=== PATIENT | male | born 1965 | race Caucasian/White ===

== ENCOUNTER 2021-10-02 09:26 | Outpatient (CLI) | payer BC, SELFPAY ==
[2021-10-02 09:50] LABS: Basophils Percent Auto 0.4 % (0.2-1.2); Eosinophils Absolute Auto 0.2 K/mm3 (0-0.3); Eosinophils Percent Auto 2.6 % (0-4.4); Hematocrit 42.1 % (42.0-52.0); Hemoglobin 14.7 g/dL (14.0-18.0); Immature Granulocyte Absolute 0.02 K/mm3 (0.00-0.031); Immature Granulocyte Percent A 0.3 % (0-0.5); Lymphocytes Absolute Auto 2.56 K/mm3 (0.9-3.2); Lymphocytes Percent Auto 32.7 % (18.3-44.2); Mean Corpuscular HGB Conc 34.9 g/dl (32-36); Mean Corpuscular Hemoglobin 31.5 pg (26-34); Mean Corpuscular Volume 90.3 fl (80-100); Mean Platelet Volume 10.8 fl (7.4-10.4); Monocytes Absolute Auto 0.5 K/mm3 (0.1-0.6); Monocytes Percent Auto 6.1 % (2.6-8.5); Neutrophils Absolute Auto 4.5 K/mm3 (1.3-6.7); Neutrophils Percent Auto 57.9 % (45.5-73.1); Platelet Count Result 227 k/mm3 (150-375); Red Blood Count 4.66 M/mm3 (4.6-6.20); Red Cell Distribution Width 12.3 % (11.5-14.5); White Blood Count 7.8 K/mm3 (4.5-10.0)
[2021-10-02 09:59] LABS: Alanine Aminotransferase 39 U/L (4-50); Albumin Level 4.2 g/dL (3.5-5.1); Alkaline Phosphatase 56 U/L (38-126); Anion Gap 4 mmol/L (8-16); Aspartate Amino Transferase 39 U/L (17-59); Bilirubin,Total 0.3 mg/dL (0.2-1.3); Blood Urea Nitrogen 10 mg/dL (9-20); Calcium 8.8 mg/dL (8.4-10.2); Carbon Dioxide 29 mmol/L (22-30); Chloride 106 mmol/L (98-107); Cholesterol 234 mg/dL (0-200); Estimated Glomerular Filt Rate > 60; Glucose 99 mg/dL (65-110); HDL Direct 34 mg/dL; Potassium 4.3 mmol/L (3.4-5.0); Sodium 139 mmol/L (137-145); Triglycerides 331 mg/dL (<150)
[2021-10-02 10:07] LABS: Hemoglobin A1C 5.6 % (<5.7)
[2021-10-02 10:09] LABS: LDL Cholesterol Direct 132 mg/dL
[2021-10-02 10:29] LABS: Prostate Specific Antigen 1.9 ng/mL (< OR = 4.0)
[2021-10-02 10:49] LABS: Vitamin D 25 Hydroxy 17.5 ng/mL
== END 2021-10-02 09:27 | disposition home or self-care (01) ==
LOC: ANHLAB 09:32
PROVIDERS: PCP Family Medicine; Visit Provider Nurse Practitioner Family
DX: Z13.0 Encounter for screening for diseases of the blood and blood-forming organs and certain disorders involving the immune mechanism (principal); Z13.1 Encounter for screening for diabetes mellitus; Z13.220 Encounter for screening for lipoid disorders; Z12.5 Encounter for screening for malignant neoplasm of prostate; Z13.29 Encounter for screening for other suspected endocrine disorder
CPT/HCPCS: 36415; 80053; 80061; 82306; 82607; 83036; 84153; 84443; 85025; G0103

== ENCOUNTER 2021-10-04 08:57 | Outpatient (CLI) | payer BC, SELFPAY ==
--- NOTE | ~2021-10-04 | XR_ITS ---
EXAMINATION: XR shoulder RT min 2V DATE: 10/04/2021 09:19 INDICATION: Right shoulder pain. TECHNIQUE: 4 views of right shoulder were obtained. COMPARISON: None. FINDINGS: Bone alignment is normal. No fracture. Glenohumeral joint is normal. There is mild acromioc lavicular joint osteoarthritis. IMPRESSION: 1. Mild acromioclavicular joint osteoarthritis. Reviewed, dictated and finalized at location A.
--- NOTE | ~2021-10-04 | XR_ITS ---
EXAMINATION: XR shoulder LT min 2V DATE: 10/04/2021 09:20 INDICATION: Left shoulder pain. TECHNIQUE: 4 views of left shoulder were obtained. COMPARISON: None. FINDINGS: Bone alignment is normal. No fracture. There is mild osteoarthritis of glenohumeral joint a nd moderate osteoarthritis of acromioclavicular joint. IMPRESSION: 1. Polyarticular osteoarthritis. Reviewed, dictated and finalized at location A.
== END 2021-10-04 08:58 | disposition home or self-care (01) ==
LOC: ANHIMG 08:59
PROVIDERS: PCP Family Medicine; Visit Provider Nurse Practitioner Family
DX: M19.012 Primary osteoarthritis, left shoulder (principal); M19.011 Primary osteoarthritis, right shoulder
CPT/HCPCS: 73030

== ENCOUNTER 2022-02-05 11:08 | Outpatient (CLI) | payer BC, SELFPAY ==
[2022-02-05 12:15] LABS: Cholesterol 137 mg/dL (0-200); HDL Direct 41 mg/dL; Triglycerides 219 mg/dL (<150)
[2022-02-05 12:26] LABS: LDL Cholesterol Direct 66 mg/dL
== END 2022-02-05 11:09 | disposition home or self-care (01) ==
PROVIDERS: PCP Family Medicine; Visit Provider Nurse Practitioner Family
DX: E78.5 Hyperlipidemia, unspecified (principal)
CPT/HCPCS: 36415; 80061

== ENCOUNTER 2022-08-15 07:23 | Outpatient (CLI) | payer BC, SELFPAY ==
--- NOTE | ~2022-08-15 | US_ITS ---
US right upper quadrant DATE: 08/15/2022 07:55 INDICATION: Right upper quadrant abdominal pain TECHNIQUE: Real-time imaging and Doppler analysis COMPARISON: None FINDINGS: No gallstones or gallbladder wall thickening. Common bile duct measures 4 mm, negative sono graphic Patel's sign. There is a focal hypoechoic area liver adjacent to the gallbladder, possibly due to parenchymal varia tion as a result of fatty infiltration of the liver. CT abdomen is recommended to exclude any hepatic space-occupying mass lesion. The pancreas is not optimally visualized due to interference from overlying bowel gas and would be be tter evaluated by CT abdomen examination as well.. IMPRESSION: Limited examination of liver and pancreas; CT abdomen examination is recommended for more optimal evaluation No evidence of gallstones or gallbladder wall thickening Reviewed, dictated and finalized at Location [facility]. Reviewed, dictated and finalized at location B. [facility] IMPRESSION: Limited examination of liver and pancreas; CT abdomen examination i s recommended for more optimal evaluation No evidence of gallstones or gallbladder wall thickening
== END 2022-08-15 07:24 | disposition home or self-care (01) ==
PROVIDERS: PCP Family Medicine; Visit Provider Nurse Practitioner Family
DX: R10.11 Right upper quadrant pain (principal)
CPT/HCPCS: 76705